=== PATIENT | female | born 1955 | race Caucasian/White ===

== ENCOUNTER 2016-12-27 13:35 | Emergency (ER) | payer MEDICAID ==
--- NOTE | 2016-12-27 14:33 | ER NURSING DOCUMENTATION ---
Nurse's Notes [facility] Name:Edie Hill Age:61 yrs Sex:Female :1955 Arrival Date:12/27/2016 Time:13:35 Bed1 Private MD: Diagnosis:Leg Laceration, Except Thigh, w/o Complication Presentation: 12/27 13:43 Acuity: CHRIS 3 lp 13:43 Presenting complaint: Patient states: Was doing yoga and hit right leg on a table and lc has a 3cm lac to lower leg. No LOC, neck pain or other injury. Transition of care: patient was not received from another setting of care. Complicating Factors: There are no complicating factors for this patient. Notified ED Physician of Shane Gallo notified. 13:43 Method Of Arrival: Walk In Triage Assessment: 13:52 General: Appears in no apparent distress, comfortable, Behavior is cooperative. Pain: Complains of pain in medial aspect of right calf Pain At worst was 6 out of 10 on a pain scale. Quality of pain is described as dull, Pain began 1 hour ago. Injury Description: Laceration sustained to medial aspect of right calf is clean, 2.6 to 7.5 cm long, was sustained 1-2 hours ago. is bleeding no active bleeding noted. Historical: - Allergies: No known drug Allergies; - Home Meds: 1. Imitrex Oral as needed - PMHx: FIBROMYALGIA; MIGRAINES; PANCREATITIS; - PSHx: orary; - Tetanus: > 10 years. - Ebola Screening: : Patient negative for fever greater than or equal to 101.5 degrees Fahrenheit, and additional compatible Ebola Virus Disease symptoms. Patient denies exposure to infectious person. Patient denies travel to an Ebola-affected area in the 21 days before illness onset. No symptoms or risks identified at this time. . - Immunization history: Flu Vaccine >1 year. - Social history: Smoking status: Patient states former smoker of tobacco. Screenin:57 Infectious Disease Risk None. Abuse screen: Denies threats or abuse. Denies injuries lc from another. Nutritional screening: No deficits noted. Assessment: 13:55 See Triage Assessment done by same RN. 13:55 Musculoskeletal: Circulation, motion, and sensation intact Capillary refill Range of lc motion intact in all extremities. Injury Description: Laceration sustained to medial aspect of right calf was sustained 1-2 hours ago. Vital Signs: 13:43 BP 127 / 87; Pulse 84; Resp 14; Temp 98.5(O); Pulse Ox 94% on R/A; Weight 72.12 kg; lp Height 5 ft. 7 in. (170.18 cm); 13:43 Body Mass Index 24.90 (72.12 kg, 170.18 cm) lp ED Course: 13:42 Patient arrived in ED. gerri 13:43 Eugenia La RN is Primary Nurse. 13:43 Triage completed. lp 13:57 Brandon Lynn MD is Attending Physician. bautista 13:57 Valuables Remains with patient Patient has correct armband on for positive lc identification. Bed in low position. Call light in reach. Adult w/ patient. Seizure precautions initiated. 13:57 Assist Provider Assist provider with laceration repair on medial aspect of right calf lc that was between 2.6 to 7.5 cm using sutures. Set up tray. Performed by Brandon Lynn MD. 14:30 Assist Provider Assist provider with laceration repair Dressed with Rosa, Neosporin, lc telfa. 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 lp Exp: 08/12/2018. Lot #: [id number]. } {Note: TDAP instead of just tetanus-diptheria toxoid. Lot # [id number] Expiration: 08/12/2018.} Route: IM; Site: left deltoid; 14:32 Follow up: Response: No adverse reaction; No change in condition lp Outcome: 14:07 Discharge ordered by . bautista 14:31 Discharged to home ambulatory. 14:31 Condition: good 14:31 Instructed on discharge instructions, follow up and referral plans. 14:32 Patient left the ED. lp 12/28 11:45 Discharge F/U Call: Spoke with: patient. Are you having any pain? yes. Pain level is lp 2 / 10 Overall Care on a scale of 1-10 with 10 being the best care, you rate our care as: the rating of 10. Signatures: Eugenia La RN RN lc Pavlish, Lena, RN RN lp Meyer, John, MD MD jm Lietz, Jeff jl
--- NOTE | 2016-12-27 14:33 | ER PHYSICIAN DOCUMENTATION ---
Physician Documentation [facility] Name:Edie Hill Age:61 yrs Sex:Female :1955 Arrival Date:12/27/2016 Time:13:35 Bed1 Private MD: Branodn Franks Disposition: 12/27/16 14:07 Discharged to Home/Self Care. Impression: Leg Laceration, Except Thigh, w/o Complication. - Condition is Good. - Discharge Instructions: Abrasion - LACERATION, Extrem (suture, staple or tape). - Medical Reconciliation form form. - Follow up: Emergency Department; When: 1 week; Reason: Staple/Suture removal. - Problem is new. - Symptoms have improved. HPI: 12/27 14:05 This 61 yrs old Female presents to ER via Walk In with complaints of jm Laceration To Leg - R. 14:05 The patient has a laceration related to: hit it against a table. The laceration(s) jm is(are) located on the medial aspect of right calf. Onset: The symptom(s)/episode began/occurred just prior to arrival. Historical: - Allergies: No known drug Allergies; - Home Meds: 1. Imitrex Oral as needed - PMHx: FIBROMYALGIA; MIGRAINES; PANCREATITIS; - PSHx: orary; - Tetanus: > 10 years. - Ebola Screening: : Patient negative for fever greater than or equal to 101.5 degrees Fahrenheit, and additional compatible Ebola Virus Disease symptoms. Patient denies exposure to infectious person. Patient denies travel to an Ebola-affected area in the 21 days before illness onset. No symptoms or risks identified at this time. . - Immunization history: Flu Vaccine >1 year. - Social history: Smoking status: Patient states former smoker of tobacco. ROS: 14:05 MS/extremity: Positive for laceration. jm 14:05 Skin: Positive for laceration(s). Exam: 14:05 Musculoskeletal/extremity: Pulses: are normal with no appreciated deficits, Joints: jm All joints appear normal with full range of motion. 14:05 Constitutional: This is a well developed, well nourished patient who is awake, alert, and in no acute distress. 14:05 Musculoskeletal/extremity: Weight bearing: able to fully bear weight. 14:05 Skin: Appearance: Color: pink. 14:05 Skin: injury, laceration(s), the wound is approximately 5 cm(s), with a depth of 1 cm(s), of the medial aspect of right calf, that can be described as no foreign body, linear, without bleeding. 14:05 Neuro: Sensation: is normal, Gait: is steady. Vital Signs: 13:43 BP 127 / 87; Pulse 84; Resp 14; Temp 98.5(O); Pulse Ox 94% on R/A; Weight 72.12 kg; lp Height 5 ft. 7 in. (170.18 cm); 13:43 Body Mass Index 24.90 (72.12 kg, 170.18 cm) lp Laceration: 14:00 Wound Repair of 5cm ( 2.0in ) subcutaneous laceration to medial aspect of right calf. jm Distal neuro/vascular/tendon intact. Anesthesia: Wound infiltrated with 5 mls of 1% lidocaine w/ Epi. Wound prep: Wound irrigation by nurse. Skin closed with 12 4-0 Ethilon using Interrupted sutures. Dressed with Kerlix. Patient tolerated well. MDM: 13:57 Patient medically screened. jm 14:06 Differential diagnosis: superficial laceration. Data reviewed: vital signs, nurses jm notes, and as a result, I will discharge patient. Counseling: I had a detailed discussion with the patient and/or guardian regarding: the historical points, exam findings, and any diagnostic results supporting the discharge/admit diagnosis, the need for outpatient follow up, with the patient's primary care provider. ED course: lac sewed w/o issues. DC home. . 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 lp Exp: 08/12/2018. Lot #: [id number]. } {Note: TDAP instead of just tetanus-diptheria toxoid. Lot # [id number] Expiration: 08/12/2018.} Route: IM; Site: left deltoid; 14:32 Follow up: Response: No adverse reaction; No change in condition lp Signatures: Eugenia La RN RN lc Pavlish, Lena, RN RN lp Meyer, John, MD MD jm
== END 2016-12-27 14:33 | disposition home or self-care (01) ==
LOC: ER 13:35 → EDBD 13:35 → ER 14:33
DX: S81.811A Laceration without foreign body, right lower leg, initial encounter (principal); W22.03XA Walked into furniture, initial encounter; Z23 Encounter for immunization
CPT/HCPCS: 12032; 90471; 99283

== ENCOUNTER 2017-01-04 09:40 | Emergency (ER) | payer MEDICAID ==
--- NOTE | 2017-01-04 10:18 | ER NURSING DOCUMENTATION ---
Nurse's Notes [facility] Name:Edie Hill Age:61 yrs Sex:Female :1955 Arrival Date:01/04/2017 Time:09:40 Bed1 Private MD: Diagnosis:Suture Removal Presentation: 01/04 09:55 Presenting complaint: Patient states: Suture removal. Transition of care: Home. lp 09:55 Method Of Arrival: Private Vehicle lp 09:55 Acuity: CHRIS 5 lp Triage Assessment: 10:11 General: Appears in no apparent distress, Behavior is appropriate for age. Pain: Denies lp pain. Derm: Skin has lesions on R calf lesion with sutures. Historical: - Allergies: No known drug Allergies; - Home Meds: 1. Imitrex Oral as needed - PMHx: FIBROMYALGIA; MIGRAINES; PANCREATITIS; Leg Laceration, Except Thigh, w/o Complication (December 27, 2016); - Tetanus: < 10 years. - Ebola Screening: : Patient negative for fever greater than or equal to 101.5 degrees Fahrenheit, and additional compatible Ebola Virus Disease symptoms. Patient denies exposure to infectious person. Patient denies travel to an Ebola-affected area in the 21 days before illness onset. . - Immunization history: Pneumococcal vaccine is not up to date, Patient has never been vaccinated Flu Vaccine None. - Social history: Smoking status: Patient states former smoker of tobacco. Screenin:13 Infectious Disease Risk None. Abuse screen: Denies threats or abuse. Denies injuries lp from another. Nutritional screening: No deficits noted. Assessment: 10:13 See Triage Assessment done by same RN. lp Vital Signs: 10:12 BP 112 / 69; Pulse 77; Resp 14; Temp 98.3(O); Pulse Ox 94% on R/A; Weight 72.12 kg; lp Height 5 ft. 7 in. (170.18 cm); Pain 0/10; 10:12 Body Mass Index 24.90 (72.12 kg, 170.18 cm) lp ED Course: 09:43 Patient arrived in ED. cj 10:10 Devika Smalls, RN is Primary Nurse. lp 10:10 Triage completed. lp 10:13 Valuables Remains with patient. lp 10:13 Wound care to laceration located on medial aspect of right calf was cleaned with soap lp and water, dressed with steri strips, sutures removed Patient tolerated well. pt reports putting A&D ointment on wound. Top of wound with area of slough. wound cleansed and steri strips applied. Patient instructed to keep clean and dry and no ointments until completely healed. Administered Medications: No medications were administered Outcome: 10:16 Discharged to home ambulatory. lp 10:16 Condition: good 10:16 Instructed on wound care. 10:16 No charge visit due to suture removal. 10:17 Discharge ordered by MD. lp 10:17 Patient left the ED. lp Signatures: Devika Smalls, RN RN Reanna Vazquez
== END 2017-01-04 10:18 | disposition home or self-care (01) ==
LOC: ER 09:40
DX: Z48.02 Encounter for removal of sutures (principal); S81.811D Laceration without foreign body, right lower leg, subsequent encounter